=== PATIENT | female | born 1985 | race American Indian/Alaskan Native ===

== ENCOUNTER 2016-12-04 13:56 | Outpatient (CLI) | payer OTHER | END 2016-12-04 13:57 | disposition home or self-care (01) | LOC: CARD 13:56 | PROVIDERS: ATTEND Obstetrics & Gynecology | DX: R00.1 Bradycardia, unspecified (principal); R07.9 Chest pain, unspecified; D64.9 Anemia, unspecified; F17.200 Nicotine dependence, unspecified, uncomplicated | CPT/HCPCS: 93005; 93010 ==